=== PATIENT | male | born 1985 | race African-American/Black ===

== ENCOUNTER → 2018-02-12 | Outpatient (CLI) | payer OTHER | LOC: M LRY 10:15 | DX: S99.922A Unspecified injury of left foot, initial encounter (principal); X58.XXXA Exposure to other specified factors, initial encounter; Y92.9 Unspecified place or not applicable | CPT/HCPCS: G0463 ==

== ENCOUNTER 2018-11-29 10:50 | Emergency (ER) | payer OTHER ==
[~2018-11-29] VITALS: Ht 172.7 cm; Wt 106.1 kg
[2018-11-29] MEDS ORDERED: ISOVUE-370 76% 100ML VIAL (Q9967) As Ordered ONE (11:15)
[2018-11-29 11:38] LABS: BASO % 0.3 % (0.0-1.0); EOS # 0.1 10^3/uL (0.0-0.50); EOS % 0.8 % (0.0-3.0); HEMATOCRIT 44.9 % (42.0-52.0); HEMOGLOBIN 14.8 g/dl (13.5-17.5); LYMPH # 2.2 10^3/uL (1.5-4.5); LYMPH % 28.1 % (24.0-44.0); MEAN CORPUSCULAR HEMOGLOBIN 28.8 pg (27.0-33.0); MEAN CORPUSCULAR VOLUME 87.5 fl (80.0-96.0); MONO # 0.6 10^3/uL (0.0-0.8); MONO % 7.3 % (0.0-5.0); NEUTROPHILS # 4.8 10^3/uL (1.8-7.7); NEUTROPHILS % 63.4 % (36.0-66.0); PLATELET COUNT, AUTOMATED 171 10^3/uL (150-450); RED BLOOD COUNT 5.13 10^6/uL (4.30-6.10); WHITE BLOOD COUNT 7.6 10^3/uL (4.0-10.0)
--- NOTE | 2018-11-29 11:57 | REP ---
CHEST, SINGLE VIEW: There is no evidence of acute infiltrate. No pleural effusion is seen. The heart is normal in size. The mediastinal silhouette is unremarkable. The visualized osseous structures are intact. IMPRESSION: No acute pulmonary disease. Electronically Signed by Alexis Fleming MD 11/30/2018 12:01 A
--- NOTE | 2018-11-29 12:17 | REP ---
CT of the chest with IV contrast, CT pulmonary artery angiography: There are no emboli in the pulmonary trunk or central pulmonary arteries. There are no emboli in the pulmonary lobe or segment branches. There are no infiltrates. There are no pleural effusions. There are no masses or nodules. The The thoracic aorta is unremarkable. Cardiac size is upper normal. There is no pericardial effusion. The visualized upper abdominal contents are unremarkable. An accessory fissure of the liver is incidentally identified. Impression: There are no pulmonary emboli. Otherwise, negative CT study of the chest. Electronically Signed by Alexis Lopez MD 11/29/2018 12:10 P
[2018-11-29 13:00] VITALS: BP 117/75
[2018-11-29 13:02] LABS: CK-MB VALUE MASS 2.3 NG/ML (<3.6); CPK CREATINE PHOSPHOKINASE 681 U/L (39-308); MB/CK RELATIVE INDEX 0.34 (< OR =4); TROPONIN I < 0.02 NG/ML (< 0.10)
--- NOTE | 2018-11-29 18:52 | ECGEPIP ---
[facility] - ED Test Date: 2018-11-29 Pat Name: MARY BETH KNOTT Department: Room: - Gender: Male Credit Control Clerk: ANDRY : 1985 Requested By: Chi Callahan Order Number: [id number] Reading MD: Attila Garcia Measurements Intervals [place] Rate: 58 P: 9 [place]: 158 QRS: 52 QRSD: 90 T: 0 QT: 405 QTc: 399 Interpretive Statements SINUS BRADYCARDIA BENIGN EARLY REPOLARIZATION NONSPECIFIC T WAVE ABNORMALITIES NO PRIORS FOR COMPARISON Electronically Signed on 11-29-2018 18:52:25 EDT by Attila Garcia
== END 2018-11-29 13:20 | disposition home or self-care (01) ==
LOC: M ED 10:50
DX: R07.9 Chest pain, unspecified (principal); R00.1 Bradycardia, unspecified
CPT/HCPCS: 36415; 71045; 71275; 80047; 82550; 82553; 84484; 85025; 93005; 93041; 94760; 99285; Q9967